=== PATIENT | male | born 1950 | race Caucasian/White ===

== ENCOUNTER → 2017-04-04 07:35 | Outpatient (CLI) | payer MEDICARE, OTHER ==
[~2017-04-04 07:35] MED LIST: ASPIRIN EC81 M1 PO; BENAZEPRIL HCL10 MG PO; HYDROCODON-ACE1 EAC7 PO; LOVASTATIN20 MG PO; NEURONTIN600 MG PO; NIASPAN500 MG PO; NORVASC5 MG PO; OMEPRAZOLE20 M1 PO
[2017-05-10 13:59] VITALS: BMI 30.5
== END | disposition home or self-care (01) ==
LOC: D.CT 07:35
DX: R10.2 Pelvic and perineal pain (principal); I73.9 Peripheral vascular disease, unspecified; I72.3 Aneurysm of iliac artery; I71.4 Abdominal aortic aneurysm, without rupture

== ENCOUNTER 2017-05-10 05:14 | Inpatient (IN) | payer MEDICARE, OTHER ==
[~2017-05-10] VITALS: Ht 188 cm; Wt 105.2 kg
[2017-05-10] VITALS (18 sets, daily range): BP systolic 105–132; BP diastolic 57–73; Ht 188 cm; Wt 105.2 kg
--- NOTE | ~2017-05-10 | OP ---
PATIENT NAME: VIC WHITTAKER MEDICAL RECORD: [id number] :46 LOCATION:D.[facility]I D.CV02 ADMISSION DATE:05/10/17 SURGEON: GISSEL HAQUE MD DATE OF OPERATION: 05/10/2017 PREOPERATIVE DIAGNOSES: 1. Infrarenal abdominal aortic aneurysm. 2. Left common iliac artery aneurysm. POSTOPERATIVE DIAGNOSES: 1. Infrarenal abdominal aortic aneurysm. 2. Left common iliac artery aneurysm. PROCEDURES: 1. Endovascular abdominal aortic aneurysm repair utilizing the Endologix endovascular device. The main unibody device (CPT 52518) was 110 mm for the straight portion of the body and each limb was a 30-mm with the diameter of the limbs at 20 mm. Also used were, the suprarenal extension (CPT code 58238). The suprarenal extension was 100 mm in length with the diameter of 34 mm. 2. The left common iliac artery extension (CPT code 85750). The length of this structure was 70 mm. 3. Bilateral femoral exposures [place] [address]-87). 4. Immediate surgeon interpretation of the fluoroscopic images. No radiologist was present for this procedure. Static fluoroscopic images were obtained as well as cine images. The interpretation of these images is dictated below. 5. Pelvic aortogram. SURGEON: Gissel Haque MD PIECE MARKER SMALL ARMS: None. ESTIMATED BLOOD LOSS: 250 cc. ANESTHESIA: General. COMPLICATIONS: None. OPERATIVE COURSE: The patient was conveyed to the operating room electively on 05/10/2017. General anesthesia was induced by the anesthesia staff. The abdomen and groins were sterilely prepped and draped. Bilateral groin cutdowns were performed. They were performed by incising along the inguinal crease. I dissected down on either sides to the superficial femoral artery which was encircled with vessel loops. I then encircled the profunda femoris with the vessel loop as well as the common femoral artery with the vessel loop. A pursestring suture of 4-0 Prolene was applied on the anterior surface of the junction of the common femoral and superficial femoral arteries. A Rumel tourniquet was then applied. Utilizing a micropuncture technique, an 8-Cuban sheath was placed into the right common femoral artery and an 8-Cuban sheath was placed into the left common femoral artery. I advanced an 0.035 Glidewire up the left common femoral artery. Over the Glidewire, a pigtail catheter was advanced. Under digital subtraction utilizing pressure injector, a pelvic aortogram was performed. No predilation was necessary for insertion of the endovascular construct. The Glidewire had been placed on the right side as well. The Glidewire on the right was changed out for a stiff wire. I then removed the 8-Cuban sheath on the right. I then advanced and loaded the AFX 2 OPERATIVE REPORT [id number] VIC WHITTAKER bifurcated device onto the stiff wire and advanced the contralateral wire up through the 17-Cuban OD-AFX introducer sheath using the wire guide. The contralateral wire was snared and pulled out through the contralateral side. The AFX 2 bifurcated device was then transferred up into the AFX introducer sheath and advanced under fluoroscopy until the distal limbs were above the aortic bifurcation, releasing the limbs of the graft. I pulled the entire system down on to the aortic bifurcation. I deployed the main body of the graft by pulling on the control cord handle. I deployed the contralateral limb by pulling the yellow limb cover and then advancing a pigtail catheter over the contralateral wire until the tip was in contact with the wire lock. I held the pigtail catheter placed and pulled on the contra wire to release it from the wire lock. I deployed the ipsilateral limb by obtaining the inner core and retracting the AFX introducer sheath. I then advanced a 34-100 mm suprarenal endograft over a stiff wire and performed a followup angiogram through the pigtail catheter to visualize the renal arteries. I removed the safety clip and began deployment by turning the control dial until fully deployed. A 20 x 13 x 17 mm left iliac extension was placed. I removed the extension delivery device from the AFX introducer sheath and advanced the Reliant balloon to the proximal end of the endograft main body. I ballooned the graft system throughout the body and the ipsilateral limb. I inserted the Reliant balloon from the contralateral side and ballooned the contralateral iliac limb of the bifurcated device. I performed a completion angiogram. I did inspect for any visible endoleaks. No endoleaks were found. The sheaths were removed. I tied down on both 4-0 Prolene sutures. Minimal bleeding occurred. This was controlled with some additional 4-0 Prolene sutures. Handheld Doppler examination was performed of the superficial femoral arteries, the common femoral arteries, and the profunda femoris arteries revealing a good flow in all 3 vessels. Suzi was added to the wound for additional hemostasis. The deep adipose tissue was closed with interrupted 3-0 Vicryl suture. Subcutaneous adipose tissue was closed with interrupted 3-0 Vicryl. The skin was closed with multiple interrupted horizontal mattress 3-0 Vicryl Rapide. Dermabond was then applied. The patient was then extubated and conveyed to post-anesthesia care unit where he was in stable condition. He had pulses in both feet. Both feet were warm. The patient is going to be transferred to the intensive care unit. TRANSINT:[id number] Voice Confirmation ID: [id number] DOCUMENT ID: [id number] GISSEL HAQUE MD at 0938 CC: MARISOL ANGELES [id number] DICTATION DATE: 05/10/17 1855 CLINICAL COORDINATOR: 05/10/17 210 DIS IN 05/11/17 [id number] [place] [address]
--- NOTE | ~2017-05-10 | DS ---
PATIENT:VIC WHITTAKER :46 MEDICAL RECORD: [id number] DISCHARGE SUMMARY ADMISSION DATE: 05/10/17 DISCHARGE DATE: 05/11/17 PREOPERATIVE DIAGNOSES: 1. Infrarenal abdominal aortic aneurysm. 2. Renal insufficiency. 3. Left common iliac artery aneurysm. 4. Acute kidney injury. 5. Hypertension. 6. Hyperlipidemia. PROCEDURE: Endovascular stent graft to repair abdominal aortic aneurysm and left common iliac artery aneurysm. HOSPITAL COURSE: The patient underwent the above operative procedure. This was performed utilizing a minimally invasive approach. Postoperatively, he was monitored in the intensive care unit. His creatinine went from 1.9 to 2.0. Nephrology saw him in consultation. I have asked him to keep himself hydrated. I am going to dismiss him home on [place] for pain. I will see him in the office in 2 to 4 weeks. I will recommend he undergo a CTA of the aorta in 3 months and then in a year. He is to resume his home medicines. TRANSINT:[id number] Voice Confirmation ID: [id number] DOCUMENT ID: [id number] GISSEL HAQUE MD at 0938 CC: MARISOL ANGELES [id number] DICTATION DATE: 05/11/17 1057 FLARE STITCHER: 05/12/17 0330 DIS IN 05/11/17 [id number] [place] [address]
[2017-05-10 06:17] LABS: ANION GAP 14.2 mmol/L (8-16); CALCIUM 9.6 mg/dL (8.5-10.1); CARBON DIOXIDE 27.3 mmol/L (21.0-32.0); CREATININE - SERUM 1.9 mg/dL (0.6-1.3); POTASSIUM - SERUM 4.5 mmol/L (3.5-5.1)
[2017-05-10 06:21] LABS: HEMATOCRIT 43.7 % (42.0-54.0); HEMOGLOBIN 14.2 g/dL (13.5-17.5); MCH 29.3 pg (26.0-34.0); MCHC 32.5 g/dL (31.0-37.0); MCV 90.3 fL (80.0-100.0); RBC 4.84 10x6/uL (4.20-6.10); RDW 14.7 % (11.5-14.5); WBC 9.5 10x3/uL (4.8-10.8)
[2017-05-11] VITALS (11 sets, daily range): BP systolic 101–137; BP diastolic 53–68
[2017-05-11 05:41] LABS: BASOPHILS 0.1 % (0-2); EOSINOPHILS 0 % (0-7); HEMATOCRIT 35.4 % (42.0-54.0); IMMATURE GRANULOCYTES 0.2 % (0-5); LYMPHOCYTES 7.6 % (15-50); MCH 28.8 pg (26.0-34.0); MCHC 31.9 g/dL (31.0-37.0); MCV 90.3 fL (80.0-100.0); MEAN PLATELET VOLUME 10.6 fL (7.4-10.4); MONOCYTES 6.5 % (2-11); NEUTROPHILS 85.6 % (40-80); PLATELET COUNT 214 10x3/uL (130-400); RBC 3.92 10x6/uL (4.20-6.10); RDW 15.1 % (11.5-14.5)
[2017-05-11 05:52] LABS: HEMOGLOBIN 11.3 g/dL (13.5-17.5); WBC 15.7 10x3/uL (4.8-10.8)
[2017-05-11 06:31] LABS: ANION GAP 15.2 mmol/L (8-16); CALCIUM 9.1 mg/dL (8.5-10.1); CARBON DIOXIDE 21.6 mmol/L (21.0-32.0); POTASSIUM - SERUM 4.8 mmol/L (3.5-5.1)
== END 2017-05-11 12:40 | disposition home or self-care (01) | DRG 269 ==
LOC: D.CVICU 05:14 → D.SDCHOLD 05:14 → D.ICU 13:08 → D.CVICU 18:26
PROVIDERS: Anesthesiology; Internal Medicine Nephrology; Surgery
PROC: 04V03EZ Restriction of Abdominal Aorta with Branched or Fenestrated Intraluminal Device, One or Two Arteries, Percutaneous Approach (ICD-10-PCS; principal; 2017-05-10 08:00)
DX: I71.4 Abdominal aortic aneurysm, without rupture (principal); N17.9 Acute kidney failure, unspecified; I10 Essential (primary) hypertension; E78.5 Hyperlipidemia, unspecified

== ENCOUNTER → 2017-08-30 08:54 | Outpatient (CLI) | payer MEDICARE, OTHER ==
[2017-05-10 13:59] VITALS: BMI 30.5
== END | disposition home or self-care (01) ==
LOC: D.CT 08:54
DX: I71.4 Abdominal aortic aneurysm, without rupture (principal)

== ENCOUNTER → 2018-03-02 08:43 | Outpatient (CLI) | payer MEDICARE, OTHER ==
[2017-05-10 13:59] VITALS: BMI 30.5
== END | disposition home or self-care (01) ==
LOC: D.CT 11-30 09:30
DX: I71.4 Abdominal aortic aneurysm, without rupture (principal)

== ENCOUNTER → 2019-03-27 16:13 | Outpatient (CLI) | payer MEDICARE, OTHER ==
[2017-05-10 13:59] VITALS: BMI 30.5
[2019-03-27 16:39] LABS: HEMATOCRIT 41.6 % (42.0-54.0); HEMOGLOBIN 13.3 g/dL (13.5-17.5); MCH 29.4 pg (26.0-34.0); MCV 91.8 fL (80.0-100.0); MEAN PLATELET VOLUME 11.4 fL (7.4-10.4); PLATELET COUNT 255 10x3/uL (130-400); RBC 4.53 10x6/uL (4.20-6.10); RDW 14.3 % (11.5-14.5); WBC 7.5 10x3/uL (4.8-10.8)
[2019-03-27 17:37] LABS: EOSINOPHILS 3 % (0-7); LYMPHOCYTES 18 % (15-50); MONOCYTES 4 % (2-11); NEUTROPHILS 75 % (40-80); PLATELET ESTIMATE NORMAL
== END | disposition home or self-care (01) ==
LOC: D.LABREF 16:13
PROVIDERS: ATTEND Internal Medicine Gastroenterology
DX: K64.0 First degree hemorrhoids (principal); K57.30 Diverticulosis of large intestine without perforation or abscess without bleeding